=== PATIENT | female | born 1980 | race Two or more races ===

== ENCOUNTER 2017-07-24 13:58 | Emergency (ER) | payer OTHER ==
[~2017-07-24] VITALS: Ht 172.7 cm; Wt 73.0 kg
[2017-07-24 15:47] VITALS: BP 151/125; Ht 172.7 cm; Wt 73.0 kg
== END 2017-07-24 19:15 | disposition left against medical advice (07) ==
LOC: ED 13:58
DX: Z53.21 Procedure and treatment not carried out due to patient leaving prior to being seen by health care provider (principal)